=== PATIENT | female | born 1970 | race Caucasian/White ===

== ENCOUNTER → 2017-07-18 11:36 | Outpatient (CLI) | payer OTHER, SELFPAY ==
[2017-07-18 14:22] LABS: ALB/GLOB Ratio 1.2 RATIO (0.9-2.4); AST(SGOT) 15 U/L (15-37); Alanine Aminotransfer ALT/SGPT 15 U/L (13-56); Albumin, Serum 3.7 g/dL (3.2-5.0); Alkaline Phosphatase 52 U/L (45-117); Anion Gap 9 (5-15); BUN 13 mg/dL (7-18); BUN/Creat Ratio 16.2 RATIO (10-20); Calcium,Total 8.1 mg/dL (8.5-10.1); Chloride 106 mmol/L (98-107); EST Glomerular Filtration Rate 81 mL/min (>60); Est Glom Filt Rate - Afr Amer 98 mL/min (>60); Globulin 3.2 g/dL (2.2-4.2); Glucose 99 mg/dL (74-106); Potassium 3.8 mmol/L (3.5-5.1); Protein, Total 6.9 g/dL (6.4-8.2); Sodium Level 138 mmol/L (136-145); Thyroid Stim Hormone (TSH) 1.47 uIU/mL (0.358-3.74)
[2017-07-19 08:37] LABS: Vitamin D,25 Hydroxy 28.8 ng/mL (29.95-100.01)
== END ==
PROVIDERS: Family Provider Internal Medicine; PCP Internal Medicine; Visit Provider Internal Medicine Endocrinology, Diabetes & Metabolism
DX: E04.2 Nontoxic multinodular goiter (principal); E55.9 Vitamin D deficiency, unspecified
CPT/HCPCS: 36415; 80053; 82306; 84443

== ENCOUNTER 2019-03-11 08:40 | Day surgery (SDC) | payer OTHER, SELFPAY ==
--- NOTE | 2019-03-10 15:49 | HP.PCM_ITS ---
History and Physical Date of Admission: 03/11/19 Lore Infante 1970 ? ? REFERRING PHYSICIAN: Liss Barboza,* ? CHIEF COMPLAINT: Mammogram Abnormality ? HPI: The patient is a pleasant 48 year old female who presents with right breast abnormal radiographs. She denies palpable breast masses. She denies nipple discharge. She denies previous breast biopsies or breast surgeries. Denies breast pain. Mother and grandmother had breast cancer. Mother diagnosed at age 55 and tested negative for BRCA gene. No ovarian cancer in family known. ? Mammograms 02/11/19 There is a mass with a spiculated margin in the right breast upper inner aspect anterior depth. No other significant masses, calcifications, or other findings are seen in either breast. US right breast 02/26/19 There is 0.4 cm x 0.6 cm x 0.5 cm irregular mass in the right breast at 1 o'clock posterior depth 1 cm from the nipple. ?This irregular mass is hypoechoic with an abrupt boundary and posterior acoustic shadowing. ?This correlates with mammography findings. IMPRESSION: SUSPICIOUS FINDING - BIOPSY SHOULD BE CONSIDERED The 0.4 cm x 0.6 cm x 0.5 cm irregular mass in the right breast is suspicious of malignancy. ?An ultrasound guided biopsy is recommended. ? US needle core right breast biopsy 02/27/19 FINAL DIAGNOSIS Right breast, ultrasound guided mammotome biopsy - Invasive ductal carcinoma, provisional histologic grade I. Estrogen Receptor (ER) ? ?Positive (>95%) Progesterone Receptor (PgR) ? ?Positive (80%) HER2 (ERBB2) Interpretation: NEGATIVE for HER2 (ERBB2) Expression ? ? PAST MEDICAL HISTORY ? Bipolar disorder, unspecified (HCC) ? ? Manic-depressive ? Dysmenorrhea ? ? MIGRAINES ? ? MOSTLY MENSES AND STRESS RELATED. ? PAST SURGICAL HISTORY ? DELIVERY ONLY ? 12/12, 06/04/03 ? PAST SURGICAL HISTORY OF ? 2005 ? REPAIR OF AN UMBILICAL HERNIA ? ? Current Outpatient Medications ? rizatriptan (MAXALT) 10 mg tablet take 1 tablet by mouth as directed if needed ? Cholecalciferol, Vitamin D3, 5,000 unit cap Take by mouth. ? escitalopram (LEXAPRO) 10 mg ORAL tablet Take one(1) tablet daily. ? buPROPion XL (WELLBUTRIN XL) 150 mg ORAL 24 hr tablet not sure of dosage; Take one(1) tablet daily. ? lamotrigine (LAMICTAL) 25 mg ORAL tablet not sure of dosage ? NIASPAN 500 MG TAB TAKE ONE DAILY ? ? ALLERGIES: Patient has no known allergies. ? PERSONAL HISTORY: ? Smoking status: Never Smoker ? Smokeless tobacco: Never Used Substance Use Topics ? Alcohol use: Yes ? ? Comment: RARELY ? Drug use: No ? FAMILY HISTORY ? Breast Cancer Mother ? ? CURRENTLY BEING TREATED FOR HER2 ? Diabetes Mother ? ? BORDERLINE ? Hypertension Mother ? ? other (PULMINARY EMBOLISMS) Mother ? ? other (arrythemia) Mother ? ? Hypertension Father ? ? Breast Cancer Maternal Grandmother ? ? Breast Cancer Maternal Uncle ? ? Heart Other ? ? MATERNAL GREAT UNCLE/SMOKING RELATED. ? Heart Maternal Aunt ? ? QUADRUPLE BYPASS ? ? REVIEW OF SYSTEMS: General - denies fevers, denies anorexia, denies weight loss Cardiovascular - denies chest pain, denies history of PR Pulmonary - denies shortness of breath, denies coughing up blood Gastrointestinal - denies abdominal pain, denies hematemesis, denies blood in stools Neurological - denies seizures, denies chronic numbness/weakness of extremities, has occasional migraine headaches Genitourinary - denies burning with urination, denies blood in urine Hematological - denies spontaneous/prolonged bleeding Skin - denies nonhealing skin wounds Musculoskeletal - taking vit D supplements, denies chronic joint/back pain Endocrine - denies diabetes, no thyroid problems Psychological ? denies hallucinations, has mild bipolar - but no major mood swings at present Obstetrical - LMP 02/12/19, menarche onset at age 13, , first at age 30, breast feeding 15m, BCP init early 20s for 5 y, clomid 10d ? PHYSICAL EXAMINATION: General: The patient is 48 year old female, well nourished, well hydrated in no acute distress. The patient is oriented to time, place, and person. VITALS: Blood pressure 100/60, pulse 99, temperature 36.2 ?C (97.1 ?F), temperature source Temporal, resp. rate 14, weight 77.1 kg (170 lb), SpO2 99 %. Body mass index is 27.03 kg/m?. Head ? Normocephalic. EOM intact with sclera clear and no icterus noted. Mouth with mucus membranes moist. Neck - supple with no jugular venous distention noted. Trachea is midline. No ca rotid bruits noted. No thyroid enlargement or thyroid nodules detected. No masses noted. Chest/breast ? no asymmetry of breasts noted, no suspicious skin lesions noted - healed biopsy site minimal ecchymoses, no nipple discharge and both nipples everted, nodularly dense breast tissue palpated bilaterally, no suspicious lesions palpated Lungs ? clear to auscultation. Normal breath sounds. No rales/rhonchi/wheezing noted. No labored breathing noted, such as retractions. No cough heard. Heart ? normal S1 and S2 auscultated. No rubs/clicks/murmurs noted. Regular rate. Abdomen ? soft and benign. Normal bowel sounds. No abdominal bruits noted. No distention noted. No masses noted. Extremities ? no calf tenderness noted. No pitting edema noted. Skin ? normal skin integrity. Lymph ? no cervical adenopathy detected, no supraclavicular adenopathy detected, no axillary adenopathy detected Neurological ? cranial nerves II-XII intact. Normal motor strength in arms and legs. No localized numbness detected. Psych ? calm and appropriate RADIOLOGIC STUDIES: As Noted ? IMPRESSION: newly diagnosed right breast cancer ? PLAN: I have discussed the above with the patient, and her who is p resent with her. I have discussed initial options for surgical treatment of breast cancer - lumpectomy followed by radiation therapy versus mastectomy with or without reconstruction. I have explained the need for sentinel lymph node biopsy. I have explained the procedures to the patient. I have counseled the patient as to the risks of the procedure, including but not limited to: infection, bleeding, injury to any blood vessels/nerves, scar tissue, lymph leak, lymphedema, need for further surgery - missing the lesion/etc., wound infections, complications of anesthesia, etc. ? the patient understands. The patient wishes to proceed with lumpectomy I have answered all of the patient's questions and she has no further questions at this point.
--- NOTE | 2019-03-11 | AXNB_PTH ---
PATIENT: GENE VARGHESE [place] [facility] [place][id number] AGE/SX: 48/F ROOM: RE03/11/[address]: Dr. Rose Elizabeth MD : 1970 BED: DIS: 03/11/2019 SPEC #: [id number] RECD: 03/11/19 12:41 STATUS: CARYN REQ #: [id number] TAHMINA: 03/11/19 00:[address]: Rose Elizabeth DEPT: SURGICAL PATHOLOGY RECD BY: Bridgett Damian ENTERED: 03/11/19 13:07 SP TYPE: AX NODE BX OTHR DR: Dr. Liss Barboza DO Tissues: A - Axillary lymph node, NOS B - Right breast, NOS Procedures: Frozen Section (charge) Frozen Section Add'l ([facility]) Surgery Specimen Level IV Surgery Specimen Level V HEADER OPERATION: Breast lumpectomy, needle localization, sentinel node biopsy, frozen section PRE-OP DIAGNOSIS: Invasive ductal carcinoma right breast TISSUE SUBMITTED: A - Lymph node tissue sent for FS at 1234, B - Right breast lumpectomy, two short sutures - medial border, one short suture - superior border, one long suture - lateral border, two white sutures, C - Right breast tissue FROZEN SECTION DIAGNOSIS A. Right axillary sentinel lymph nodes, biopsy: Two out of two lymph nodes negative for carcinoma. AM:joseline 03/11/19 MICROSCOPIC DIAGNOSIS A. Right axillary sentinel lymph nodes, biopsy: Two out of two lymph nodes negative for metastatic carcinoma. See comment. B. Right breast, lumpectomy with needle localization: Invasive ductal carcinoma. See cancer summary below. See comment. C. Right breast tissue: A piece of benign breast tissue, negative for carcinoma. SJ:joseline 03/18/19 INVASIVE BREAST CANCER SUMMARY: Procedure: Excision with wire-guided localization Specimen: Type: Partial breast Laterality: Right Invasive Tumor: Site: Not specified Size: 0.4 x 0.3 cm (measured microscopically) Histologic type: Invasive ductal carcinoma, not otherwise specified Histologic grade ([place] grade): Glandular/tubular differentiation score: 1 Nuclear pleomorphism score: 1 Mitotic count score: 1 Overall grade: 1 (score of 3) Focality: Single focus of invasive tumor Ductal Carcinoma In Situ: Not identified Lobular Carcinoma In Situ: Not identified Tumor extension: Skin, nipple, skeletal muscle: Not applicable Invasive carcinoma margins: The invasive carcinoma is focally present at the superior margin of the specimen. In situ carcinoma margins: not applicable. Regional Lymph Nodes: Number of sentinel lymph nodes examined: 2 Total number of lymph nodes examined: 2 No evidence of macrometastases, micrometastases or isolated tumor cells Lymph-vascular invasion: Not identified Dermal lymph-vascular invasion: Not applicable Treatment Effect: No known presurgical therapy. Distant metastasis: No applicable Additional Pathologic Findings: Fibrocystic changes and intraductal hyperplasia without atypia. - Changes consistent with previous site. Ancillary Studies: Previously performed on same tumor ([facility] [id number]) ER: Positive (>95%, moderate intensity) MO: Positive (80%, weak intensity) Her2: Negative (1+) Microcalcifications: Not identified Clinical History: Please refer to previous specimen ([facility] [id number]), right breast, ultrasound-guided mammotome biopsy with diagnosis of invasive ductal carcinoma, provisional histologic grade I. Pathologic Stage: pT1a pN0(sn) Mx The above summary is in compliance with [employer] [place] [employer] (CAP) Cancer Protocols Checklist and [place] Joint Committee on Cancer (AJCC), Staging Manual, 8th Ed. COMMENT A. The lymph nodes are negative for metastatic carcinoma on multiple H & E levels and immunohisto-chemical stains for cytokeratins (RF20-9). B. Immunohistochemistry (RF20-9) supports the above diagnosis. Case has been reviewed in consultation with Dr. Sultana who concurs with the above diagnosis. IDC:AM MICROSCOPIC DESCRIPTION Slides are reviewed. GROSS DESCRIPTION A - Received fresh for frozen section consultation labeled with the patient's name is a specimen designated lymph node tissue. The specimen consists of an irregular fragment of jacobs-yellow fibrofatty tissue measuring 3 x 2 x 1 cm. Dissection reveals two lymph nodes ranging in size from 1 to 1.3 cm. The nodules of the lymph nodes are submitted in their entirety in two blocks for frozen section consultation as follows: 1 - lymph node, 2 - one lymph node, bisected. / AM: 03/12/19 B - Received fresh for OR consultation labeled with the patient's name is a specimen designated right breast lumpectomy. The specimen consists of an irregular fragment of oriented yellow fatty tissue measuring 6 x 5.5 x 2 cm and weighing 32.2 gm. The specimen is differentially inked as follows: The specimen is inked as follows: anterior - yellow, posterior - black, superior - blue, inferior - green, medial - red and lateral - orange. Serial sections reveal a blood-filled biopsy cavity measuring 5 mm. This biopsy cavity is located 4 mm from its closest (inferior) margin of excision. The remainder of the breast parenchyma is jacobs-yellow and contains focal white fibrous streaks. No distinct mass lesion is identified. The results of the gross evaluation are conveyed to the surgeon intraoperatively. The entire specimen is submitted as follows: 1 & 2 - perpendicular margins, 3-22 - rest of the specimen. The specimen is submitted after additional fixation. / AM: 03/12/19 C - Received in fixative is one container labeled with the patient's name and designated right breast tissue. The specimen consists of a single irregular fragment of yellow fatty tissue measuring 3.6 x 3 x 1.2 cm. No designation is provided. The specimen is inked and serially sectioned to reveal homogenous yellow cut surfaces without areas of cyst formation, necrosis or hemorrhage. The specimen is totally submitted in three cassettes. / AM: 03/12/19 TC:0 CPT: 59427 x2, 09818, 18128, 67234, 38174
--- NOTE | 2019-03-11 | IMM_PTH ---
PATIENT: GENE VARGHESE LOC: [facility] – [place] U#:[id number] AGE/SX: 48/F ROOM: RE03/11/[address]: Dr. Rose Elizabeth MD : 1970 BED: DIS: 03/11/2019 SPEC #: [id number] RECD: 03/15/19 10:57 STATUS: CARYN REQ #: [id number] TAHMINA: 03/11/19 00:[address]: Rose Elizabeth DEPT: IMMUNOHISTOCHEMISTRY RECD BY: Bridgett Damian ENTERED: 03/15/19 10:59 SP TYPE: IMMUNO OTHR DR: Dr. Liss Barboza DO Tissues: A - Axillary lymph node, NOS B - Right breast, NOS Procedures: Calponin-1(initial) CALPONIN-1 (add) CK7 (add) Pankeratin (initial) Pankeratin (add) P40 (add) PHYSICIAN & INSTITUTION [place] [id number] SPECIMEN INFORMATION: Tissue Source: A - Right axillary sentinel lymph nodes, biopsy, B - Right breast lumpectomy Clinical Info: Invasive ductal carcinoma right breast Specimen Number: [id number] A1, A2, B14 & B15 CPT code: 60368 x2, 68129 x6 METHODOLOGY: Deparaffinized sections of prefer/formalin-fixed tissue or PAP/DQ stained slides are incubated with monoclonal/polyclonal antibodies/oligonucleotide probes. Localization is made via biotin free immunoperoxidase method. Appropriate controls are performed and reacted as expected. Results on target cell population are indicated in the following table: RESULTS: ANTIBODY / CLONE RESULT Block A1 AE1-3 (AE1/AE3/PCK26) negative CK7 (OV-TL12/30) negative Block A2 AE1-3 (AE1/AE3/PCK26) negative CK7 (OV-TL12/30) negative Block B14 P40 (BC28) negative Calponin-1 (KH391I) negative Block B15 P40 (BC28) negative Calponin-1 (MX459R) negative These tests were developed and their performance characteristics determined by [facility]. They may not have been cleared or approved by the U.S. Food and Drug Administration. The FDA has determined that such clearance or approval is not necessary. The above immunohistochemical/dualISH markers are ordered and reviewed by the Pathologist. INTERPRETATION: A. Right axillary sentinel lymph nodes, biopsy: Two out of two lymph nodes, negative for metastatic carcinoma. B. Right breast lumpectomy: Invasive ductal carcinoma. SJ:joseline 03/18/19
--- NOTE | 2019-03-11 09:02 | BI_ITS ---
SURGICAL BREAST SPECIMEN RADIOGRAPH CLINICAL: Document presence of localization wire in biopsy specimen. FINDINGS: Specimen shows presence of localization wire. The wire appears intact. There is no evident mass or suspicious calcifications within either specimen. A biopsy clip is not identified within the specimen. Pathology is pending and an addendum to the biopsy report will be performed after the final pathologic diagnosis is rendered. Electronically Signed: Alo Benson MD at 7:13 EST , Service support , BI/Breast Biopsy Specimen
[2019-03-11 09:10] VITALS: BP 109/73; PULSE 70; RESP 16; TEMP 36.6; O2SAT 97; BMI 26.6
[2019-03-11 09:14] LABS: Internal QC Validated? YES +Cl - CLEAR BKGD; Pregnancy, Urine Negative Negative
--- NOTE | 2019-03-11 09:30 | NM_ITS ---
Procedure: Right breast, periareolar, injection of nuclear medicine for lymph node evaluation. INDICATIONS: Right breast malignancy. TECHNIQUE: 1.1 mCi total activity of filtered sulfur colloid was fractionated into 4 equal volumes. Each volume was then injected in a intradermal and subdermal location at the periareolar right breast 12:00, 3:00, 6:00 and 9:00 locations. NM/Lymph Node Injection Only IMPRESSION: Successful nuclear medicine injection of the periareolar right breast. The patient tolerated the procedure well without evident immediate post procedure complication. Electronically Signed: Alo Benson MD at 10:51 EST , Service support ,
[2019-03-11] MEDS: Cefazolin 2 GM in 0.9% Normal Saline 100 ML IV (12:02)
[2019-03-11] MEDS: Isosulfan Blue 1% 5 ML Vial (12:11)
[2019-03-11] MEDS: 0.9% Normal Saline (Pres. free 10 ML Vial (12:11)
--- NOTE | 2019-03-11 12:55 | RAD_ITS ---
STUDY: X-RAY CHEST REASON FOR EXAM: Female, 48 years old. LOOKING FOR RIGHT BREAST CLIP. AP PCXR 55 and quot; SUPINE IN SURGERY. TECHNIQUE: Single AP portable view of the chest. COMPARISON: None. FINDINGS: There is a 3 mm long linear metallic just to the right of the spine which may represent a breast biopsy clip. However, this seems somewhat medial and may represent something else. Surgical clips and gas is seen in the right axilla consistent with axillary lymph node dissection. The lungs are clear and expanded. There is no demonstrated pleural abnormality. Normal size heart. Normal mediastinum and corey. Normal visualized pulmonary arteries. Normal visualized aortic arch and descending thoracic aorta. Normal visualized thoracic spine. Normal visualized ribs, clavicles, and shoulders. There is no demonstrated abnormality of the visualized soft tissue structures of the upper abdomen. RAD/Chest 1 View (Portable) IMPRESSION: Questionable breast biopsy clip medially. Electronically Signed: Anibal Ozuna MD at 14:25 EST Tel , Service support ,
[2019-03-11] MEDS: Bupiv/Epi 0.25% 30 ML Vial (13:54)
[2019-03-11 14:13] VITALS: BP 109/73; BP 119/80; PULSE 24; RESP 132; TEMP 36.8; O2SAT 95
[2019-03-11 14:30] VITALS: BP 109/73; BP 116/81; PULSE 85; RESP 16; O2SAT 92
[2019-03-11 14:45] VITALS: BP 109/73; BP 110/80; PULSE 68; RESP 16; O2SAT 93
[2019-03-11] MEDS: Lactated Ringers 1,000 ML 75 ML IV (14:55)
[2019-03-11 14:58] VITALS: BP 109/73; BP 113/80; PULSE 70; RESP 16; TEMP 36.9; O2SAT 96
--- NOTE | 2019-03-11 15:00 | PCM.DC.BS ---
Discharge Diet: No Restrictions Discharge Activity: Return to Normal Activity, May not drive while taking narcotic pain medications. Lifting Restrictions: no lifting greater than 5 pounds with right arm Call your doctor if your incision/area has: Continuous Slow Oozing, Foul Smelling Discharge Call your doctor if you observe: Fever of 101 or Higher Additional Dressing/Incision Instructions:: Leave dressings in place. May get wet in shower. Do not soak - no tub baths/swimming. Wear supportive bra during the day, apply ice to area as tolerated for comfort Additional Instructions: Follow up with Dr. Elizabeth, either Monday the third or Monday the 6th, whichever is convenient, please call for time and date , thank you Allergies/Adverse Reactions: Allergies No Known Allergies Allergy (Verified 03/11/19 09:05) Medications to take at Discharge Bupropion HCl [Bupropion HCl Sr] 150 mg PO DAILY 03/08/19 Escitalopram Oxalate [Lexapro] 10 mg PO DAILY 03/08/19 Lamotrigine [Lamictal Xr] 100 mg PO DAILY 03/08/19 Niacin [Niacin ER] 500 mg PO DAILY 03/08/19 Hydrocodone Bitart/Apap 5-325 [[place] 5MG-325MG] 1 tab PO Q8H PRN PRN 5 Days #15 tab 03/11/19 The following prescriptions were given: Hydrocodone Bitart/Apap 5-325 [[place] 5MG-325MG] 1 tab PO Q8H PRN PRN 5 Days #15 tab PRN Reason: Pain Transmission Status: Received by [address] Primary Care Physician: Liss Barboza DO [Primary Care Provider] - Please Follow Up With: Rose Elizabeth MD - When: to be seen on Monday or Monday, whichever is convenient, please call us
--- NOTE | 2019-03-11 15:48 | OP.PCM_ITS ---
Report of Operation Date of Procedure: 03/11/19 Pre-Operative Diagnosis: right breast cancer Post-Operative Diagnosis: right breast cancer - upper inner quadrant, two lymph nodes negative Surgery/Procedure Performed:: right breast lumpectomy via wire localization, right axillary sentinel lymph node biopsy via blue and radioactive dye Description of Surgical Findings:: right breast cancer - upper inner quadrant, two lymph nodes negative, marker clip capsule identified (also cavity noted) but marker clip dropped out and not in specimen fire department marine engineer: Desirae Gay Type of Anesthesia:: General Anesthesiologist: Talha Cobian Specimen's removed: right breast tissue, right breast lymph node tissue Estimated Blood Loss (mL): < 10 ml Fluids Replaced: see anesthesia note Description of Procedure: After informed consent was given, the patient was brought into the Breast Stereotactic Radiology suite. Appropriate time out protocol was followed. She was then placed in the prone position on the [place] stereotactic table. The patient?s right breast was placed in the opening at the head of the table. A sales contract administrator compression mammogram was then obtained in the medial view. The marker clip that was previously placed was identified. Stereo pictures of the lesion were then taken for XYZ coordinates. The Kopans needle was then positioned where it would be entering into the patient?s breast. The skin at this site was then cleansed with a surgical skin preparation. The skin and subcutaneous tissues at this site were then infiltrated with 1% xylocaine. The Kopans needle was then positioned into the patient?s breast at the proper coordinates of depth. A sales contract administrator film was obtained which revealed the wire in proper position. The patient was then placed in the supine position and the wire was taped into place. A unilateral mammogram in the CC and MLO view were then taken for use in the OR. The patient tolerated this portion of the procedure well and was brought to the AC awaiting surgery in the OR The patient was then brought to the Operating Room and placed on the operating table in the supine position. Appropriate time out protocol was followed. She was then placed under general anesthesia. 2 cc of diluted 50:50 lymphozurin blue dye was then injected into the periareolar area and around the biopsy cavity with a 25 g needle. Gentle massage was then done for a few minutes. The patient's right chest and neck area was then prepped with a sterile surgical skin preparation and appropriate sterile surgical drapes were placed. The Neoprobe was brought into the operative field. 10 second count over the tumor site was 454. 10 second count over the abdomen was 0. A skin incision was made in the inferior portion of the hair bearing area of the right axilla. It was carried through to the subcutaneous tissues using electrocautery. Any hemorrhage was controlled with electrocautery. A Weitlaner retractor was used for increased operative exposure. The blue lymphatic vessels were then followed by blunt dissection until blue colored lymph nodes were identified. These were from the surrounding tissue by blunt dissection and the vascular pedicles ligated with vicryl suture and ligaclips. 10 second count over the ly mph tissue was 45. The lymph nodes were then forwarded to pathology for frozen section. Pathology revealed that two lymph nodes were negative for metastatic disease. 10 second count in the axillary cavity after the lymph hay tissue was removed was 4. Hemostasis was controlled with electrocautery. Star was applied into the axillary cavity. The skin edges were reapproximated with 3-0 vicryl suture in a horizontal mattress fashion and then further closed with running 4-0 monocryl in a subcuticular fashion. Cavilon and steristrips were then placed to reinforce the skin closure and proper sterile dressings were applied. The right breast lumpectomy was then done next. A wire had already been placed in the stereotactic biopsy room in the radiology department as described above. The skin and subcutaneous tissues at the site of the breast lesion was then infiltrated with 1% xylocaine with epinephrine. A transverse skin incision was then made with a 15 blade scalpel in the upper inner aspect of the patient's right breast. The incision was carried down through to the subcutaneous tissues. Hemostasis was controlled with electrocautery. The breast tissue surrounding the wire was then carefully palpated out and from the surrounding tissues using electrocautery. The marker clip was noted to be medial to the breast lesion from the previous US guided needle core biopsy. The marker clip capsule was identified, it had from the breast tissue. There was a palpable mass that was lateral to the marker clip capsule, it was dissected such that there was at least a centimeter margin around the lesion. The breast tissue, once from the breast, was then forwarded to the radiology department. A specimen mammogram revealed that the lesion was within the specimen but the marker clip was not present. A CXR obtained in the OR revealed that the marker clip was in the most medial aspect of the lumpectomy cavity. It had probably dropped there - since it was not in the location as noted in the previous mammograms. Attempt to retrieve the marker clip by excising more breast tissue was unsuccessful. Therefore retrieving the clip was aborted. Pathology review revealed that there was a mass present and a clot filled biopsy cavity, with the closest margin was inferior with a measurement of 4mm. The wound cavity was carefully examined. No further suspicious tissue was palpated or visualized. Hemostasis was carefully controlled with electrocautery. The subdermal tissues were then approximated with vicryl suture. The incision was then reapproximated close using running monocryl suture. Cavilon and steristrips were then placed to reinforce the skin closure. A sterile dressing was then applied. The patient was then brought to the Recovery Room in stable condition. - Complications none noted - Admit VTE Documentation VTE Present on Admission: Yes VTE Mechan Device Prophylaxis: SCD's
[2019-03-11 15:58] VITALS: BP 105/65; BP 109/73; PULSE 62; RESP 16; TEMP 36.8; O2SAT 99
== END 2019-03-11 16:11 | disposition home or self-care (01) ==
LOC: SDC 08:44 → AC 08:46
PROVIDERS: Anesthesiology; Family Provider Internal Medicine; PCP Internal Medicine; Referring Provider Surgery; Visit Provider Surgery
PROC: 0HBV0ZZ Excision of Bilateral Breast, Open Approach (ICD-10-PCS; CPT 19302; principal; 2019-03-11 10:45)
DX: C50.211 Malignant neoplasm of upper-inner quadrant of right female breast (principal); Z17.0 Estrogen receptor positive status [ER+]; F31.9 Bipolar disorder, unspecified; Z79.899 Other long term (current) drug therapy; Z80.3 Family history of malignant neoplasm of breast
CPT/HCPCS: 19301; 38525; 38900; 19281; 38792; 71045; 76098; 81025; 88305; 88307; 88331; 88332; 88341; 88342; A9541; J7120; J2405; J3490; Q9968

== ENCOUNTER 2019-03-20 07:14 | Day surgery (SDC) | payer OTHER, SELFPAY ==
--- NOTE | 2019-03-19 19:45 | HP.PCM_ITS ---
History and Physical Date of Admission: 03/20/19 Lore Infante 1970 ? ? REFERRING PHYSICIAN: Liss Barboza,* ? CHIEF COMPLAINT: Mammogram Abnormality ? HPI: The patient is a pleasant 48 year old female who presents right breast cancer. She is s/p right breast lumpectomy on 03/11/19. At time of surgery, pathology revealed closest margin was inferior with clear margins. However, final pathology reveals that superior margin is grossly positive. She therefore presents for reexcision. Also marker clip was retained, will attempt retrieval of this. ? Procedure: Excision with wire-guided localization Specimen: Type: Partial breast Laterality: Right Invasive Tumor: Site: Not specified Size: 0.4 x 0.3 cm (measured microscopically) Histologic type: Invasive ductal carcinoma, not otherwise specified Histologic grade (Amber grade): Glandular/tubular differentiation score: 1 Nuclear pleomorphism score: 1 Mitotic count score: 1 Overall grade: 1 (score of 3) Focality: Single focus of invasive tumor Ductal Carcinoma In Situ: Not identified Lobular Carcinoma In Situ: Not identified Tumor extension: Skin, nipple, skeletal muscle: Not applicable Invasive carcinoma margins: The invasive carcinoma is focally present at the superior margin of the specimen. In situ carcinoma margins: not applicable. Regional Lymph Nodes: Number of sentinel lymph nodes examined: 2 Total number of lymph nodes examined: 2 No evidence of macrometastases, micrometastases or isolated tumor cells Lymph-vascular invasion: Not identified Dermal lymph-vascular invasion: Not applicable Treatment Effect: No known presurgical therapy. Distant metastasis: No applicable Additional Pathologic Findings: Fibrocystic changes and intraductal hyperplasia without atypia. - Changes consistent with previous site. Ancillary Studies: Previously performed on same tumor ([facility] [id number]- [id number]) ER: Positive (>95%, moderate intensity) CA: Positive (80%, weak intensity) Her2: Negative (1+) Microcalcifications: Not identified Clinical History: Please refer to previous specimen ([facility] [id number]), right breast, ultrasound-guided mammotome biopsy with diagnosis of invasive ductal carcinoma, provisional histologic grade I. Pathologic Stage: pT1a pN0(sn) Mx ? ? PAST MEDICAL HISTORY ? Bipolar disorder, unspecified (HCC) ? ? Manic-depressive ? Dysmenorrhea ? ? MIGRAINES ? ? MOSTLY MENSES AND STRESS RELATED. right breast cancer stage I ? PAST SURGICAL HISTORY ? DELIVERY ONLY ? 12/12, 06/04/03 ? PAST SURGICAL HISTORY OF ? 2005 ? REPAIR OF AN UMBILICAL HERNIA right breast lumpectomy/sentinel lymph node biopsy 03/11/19 ? ? Current Outpatient Medications ? rizatriptan (MAXALT) 10 mg tablet take 1 tablet by mouth as directed if needed ? Cholecalciferol, Vitamin D3, 5,000 unit cap Take by mouth. ? escitalopram (LEXAPRO) 10 mg ORAL tablet Take one(1) tablet daily. ? buPROPion XL (WELLBUTRIN XL) 150 mg ORAL 24 hr tablet not sure of dosage; Take one(1) tablet daily. ? lamotrigine (LAMICTAL) 25 mg ORAL tablet not sure of dosage ? NIASPAN 500 MG TAB TAKE ONE DAILY ? ? ALLERGIES: Patient has no known allergies. ? PERSONAL HISTORY: ? Smoking status: Never Smoker ? Smokeless tobacco: Never Used Substance Use Topics ? Alcohol use: Yes ? ? Comment: RARELY ? Drug use: No ? FAMILY HISTORY ? Breast Cancer Mother ? ? CURRENTLY BEING TREATED FOR HER2 ? Diabetes Mother ? ? BORDERLINE ? Hypertension Mother ? ? other (PULMINARY EMBOLISMS) Mother ? ? other (arrythemia) Mother ? ? Hypertension Father ? ? Breast Cancer Maternal Grandmother ? ? Breast Cancer Maternal Uncle ? ? Heart Other ? ? MATERNAL GREAT UNCLE/SMOKING RELATED. ? Heart Maternal Aunt ? ? QUADRUPLE BYPASS ? ? REVIEW OF SYSTEMS: General - denies fevers, denies anorexia, denies weight loss Cardiovascular - denies chest pain, denies history of [place] Pulmonary - denies shortness of breath, denies coughing up blood Gastrointestinal - denies abdominal pain, denies hematemesis, denies blood in stools Neurological - denies seizures, denies chronic numbness/weakness of extremities, has occasional migraine headaches Genitourinary - denies burning with urination, denies blood in urine Hematological - denies spontaneous/prolonged bleeding Skin - denies nonhealing skin wounds Musculoskeletal - taking vit D supplements, denies chronic joint/back pain Endocrine - denies diabetes, no thyroid problems Psychological ? denies hallucinations, has mild bipolar - but no major mood swings at present Obstetrical - LMP 02/12/19, menarche onset at age 13, , first at age 30, breast feeding 15m, BCP init early 20s for 5 y, clomid 10d ? PHYSICAL EXAMINATION: General: The patient is 48 year old female, well nourished, well hydrated in no acute distress. The patient is oriented to time, place, and person. VITALS: Blood pressure 100/60, pulse 99, temperature 36.2 ?C (97.1 ?F), temperature source Temporal, resp. rate 14, weight 77.1 kg (170 lb), SpO2 99 %. Body mass index is 27.03 kg/m?. Head ? Normocephalic. EOM intact with sclera clear and no icterus noted. Mouth with mucus membranes moist. Neck - supple with no jugular venous distention noted. Trachea is midline. No carotid bruits noted. No thyroid enlargement or thyroid nodules detected. No masses noted. Chest/breast ? no asymmetry of breasts noted, no suspicious skin lesions noted - healed transverse incision medial aspect of right breast, no nipple discharge and both nipples everted, nodularly dense breast tissue palpated bilaterally, no suspicious lesions palpated Lungs ? clear to auscultation. Normal breath sounds. No rales/rhonchi/wheezing noted. No labored breathing noted, such as retractions. No cough heard. Heart ? normal S1 and S2 auscultated. No rubs/clicks/murmurs noted. Regular rate. Abdomen ? soft and benign. Normal bowel sounds. No abdominal bruits noted. No distention noted. No masses noted. Extremities ? no calf tenderness noted. No pitting edema noted. Skin ? normal skin integrity. Lymph ? no cervical adenopathy detected, no supraclavicular adenopathy detected, healed axillary incisional site - no axillary adenopathy detected Neurological ? cranial nerves II-XII intact. Normal motor strength in arms and legs. No localized numbness detected. Psych ? calm and appropriate RADIOLOGIC STUDIES: As Noted ? IMPRESSION: right breast cancer stage I - margins positive ? PLAN: I have discussed the above with the patient, and her who is present with her. I have recommended reexcision to clear margins. Will also attempt to retrieve marker clip. I have explained the procedure to the patient. I have counseled the patient as to the risks of the procedure, including but not limited to: infection, bleeding, injury to any blood vessels/nerves, scar tissue, lymph leak, lymphedema, need for further surgery - missing the lesion/etc., wound infections, complications of anesthesia, etc. ? the patient understands. The patient wishes to proceed with lumpectomy I have answered all of the patient's questions and she has no further questions at this point.
--- NOTE | 2019-03-20 07:34 | BI_ITS ---
SURGICAL BREAST SPECIMEN RADIOGRAPH CLINICAL: Document presence of tissue clip marker in biopsy specimen. FINDINGS: Specimen shows presence of tissue clip marker. Electronically Signed: Virgil Maddox, at 10:52 EST , Service support , BI/Breast Biopsy Specimen
[2019-03-20 07:44] LABS: Internal QC Validated? YES +Cl - CLEAR BKGD; Pregnancy, Urine Negative Negative
[2019-03-20 07:47] VITALS: BP 111/74; PULSE 71; RESP 16; TEMP 37; O2SAT 99; BMI 26.6
--- NOTE | 2019-03-20 08:55 | BRBX_PTH ---
PATIENT: GENE VARGHESE [place] [facility] [id number] AGE/SX: 48/F ROOM: RE03/20/[address]: Dr. Rose Elizabeth MD : 1970 BED: DIS: 03/20/2019 SPEC #: [id number] RECD: 03/20/19 10:19 STATUS: CARYN AMANDA #: [id number] TAHMINA: 03/20/19 08:[address]: Rose Elizabeth DEPT: SURGICAL PATHOLOGY RECD BY: Lamonte Larios ENTERED: 03/20/19 10:50 SP TYPE: BREAST BX OTHR DR: Dr. Liss Barboza DO Tissues: A - Right breast, NOS B - Right breast, NOS Procedures: Surgery Specimen Level IV HEADER OPERATION: Breast lumpectomy PRE-OP DIAGNOSIS: Right breast cancer, stage 1 TISSUE SUBMITTED: A. Right breast tissue, B. Additional right breast issue MICROSCOPIC DIAGNOSIS A. Right breast tissue: A piece of benign breast tissue with changes consistent with previous biopsy site. B. Additional right breast tissue: Changes consistent with previous biopsy site. Intraductal hyperplasia without atypia. Negative for malignancy. See comment. CAT:joseline 03/22/19 COMMENT B. Please make reference to previous specimen, [id number], right breast, lumpectomy with diagnosis of invasive ductal carcinoma. The tumor is present at the superior margin of the lumpectomy specimen.. Additional tissue submitted, [id number] is negative for carcinoma. The overall superior margin is 1 cm away from the tumor. The cancer summary is already provided in the previous specimen ([id number]). MICROSCOPIC DESCRIPTION Slides are reviewed. GROSS DESCRIPTION A - Received in fixative is one container labeled with the patient's name and designated right breast tissue. The specimen consists of an irregular fragment of yellow-white fibrofatty tissue containing wire and measuring 3.5 x 2.5 x 1.3 cm and weighing 5 gm. No sutures are present in the specimen. The specimen is inked. No distinct mass lesion is identified. The specimen is totally submitted in four cassettes. B - Received in fixative is one container labeled with the patient's name and designated additional right breast, suture carr tumor site (superior margin). The specimen consists of a pancake-shaped fragment of yellow fatty tissue measuring 7 x 5 x 1 cm. A suture is present along one surface. This surface is inked in blue ink. The opposite surface is inked in black ink. Serial sections reveals a jacobs-white nodule measuring 5 mm. The remainder of the cut surfaces are yellow and fatty in appearance. No?other nodules are identified. The nodule is submitted in its entirety in cassette 1. Additional public service representative sections are submitted in cassettes 2-6. / AM:joseline 03/21/19 TC:5 CPT: 84841 x2
[2019-03-20] MEDS: Cefazolin 2 GM in 0.9% Normal Saline 100 ML IV (09:34)
--- NOTE | 2019-03-20 10:54 | PCM.OPRPT ---
Report of Operation Date of Procedure: 03/20/19 Pre-Operative Diagnosis: right breast cancer - margins positive Post-Operative Diagnosis: same Surgery/Procedure Performed:: right breast biopsy via wire localization - excision of superior margins of breast biopsy cavity, wire localization for excision of marker clip Description of Surgical Findings:: right breast tissue - superior margin excised Anesthesiologist: Mikey Banks Specimen's removed: right breast tissue, superior margin with suture at tumor side Estimated Blood Loss (mL): < 10 ml Fluids Replaced: 800 ml RL Description of Procedure: After informed consent was given, the patient was brought into the Breast Stereotactic Radiology suite. Appropriate time out protocol was followed. She was then placed in the prone position on the [place] stereotactic table. The patient?s right breast was placed in the opening at the head of the table. A marriage counselor compression mammogram was then obtained in the lateral view. The marker clip that was previously placed was identified. Stereo pictures of the lesion were then taken for XYZ coordinates. The Kopans needle was then positioned where it would be entering into the patient?s breast. The skin at this site was then cleansed with a surgical skin preparation. The skin and subcutaneous tissues at this site were then infiltrated with 1% xylocaine. The Kopans needle was then positioned into the patient?s breast at the proper coordinates of depth. A marriage counselor film was obtained which revealed the wire in proper position. The patient was then placed in the supine position and the wire was taped into place. A unilateral mammogram in the CC and MLO view were then taken for use in the OR. The patient tolerated this portion of the procedure well and was brought to the AC awaiting surgery in the OR. The patient was then brought to the Operating Room. Appropriate time out protocol was again followed. She was placed on the operating table in the supine position. A wire had already been placed in the stereotactic biopsy room in the radiology department as described above. The right breast with the wire in placed was then prepped with a sterile surgical skin preparation and sterile surgical drapes were placed. The skin and subcutaneous tissues at the site of the breast lesion was then infiltrated with 1% xylocaine with epinephrine. At the site of the previous surgical site, a skin incision was then made with a 15 blade scalpel and carried down through to the subcutaneous tissues. Hemostasis was controlled with electrocautery. The wire was then palpated out and brought into the wound from outside. The breast tissue surrounding the wire was then carefully palpated out and from the surrounding tissues using electrocautery. The breast tissue, once from the breast, was then forwarded to the radiology department, where a specimen mammogram revealed that the marker clip was within the specimen. The breast lumpectomy was carefully examined. The superior aspect of the cavity was then excised from the surrounding breast tissue. The breast tissue was then marked with suture at the previous tumor site. It was then forwarded to pathology for analysis. No palpable or visible suspicious lesions were noted. Hemostasis was carefully controlled with electrocautery. The parenchymal breast tissues were then approximated with vicryl suture. The subdermal tissues were also reapproximated with vicryl suture. The incision was then reapproximated close using running monocryl suture. Cavilon and steristrips were then placed to reinforce the skin closure. A sterile dressing was then applied. The patient was then brought to the Recovery Room in stable condition. - Complications none noted - Admit VTE Documentation VTE Present on Admission: Yes VTE Mechan Device Prophylaxis: SCD's
[2019-03-20 11:01] VITALS: BP 104/68; BP 111/74; PULSE 74; RESP 16; TEMP 37.1; O2SAT 98
[2019-03-20 11:06] VITALS: BP 111/74; BP 96/60; PULSE 61; RESP 15; O2SAT 98
--- NOTE | 2019-03-20 11:10 | DCINST_ITS ---
Discharge Diet: No Restrictions Discharge Activity: Return to Normal Activity Additional Activity Instructions:: as per previous Allergies/Adverse Reactions: Allergies No Known Allergies Allergy (Verified 03/18/19 13:32) Medications to take at Discharge Bupropion HCl [Bupropion HCl Sr] 150 mg PO DAILY 03/08/19 Escitalopram Oxalate [Lexapro] 10 mg PO DAILY 03/08/19 Lamotrigine [Lamictal Xr] 100 mg PO DAILY 03/08/19 Niacin [Niacin ER] 500 mg PO DAILY 03/08/19 Cephalexin [Keflex] 500 mg PO Q12 5 Days #10 cap 03/20/19 The following prescriptions were given: Cephalexin [Keflex] 500 mg PO Q12 5 Days #10 cap Transmission Status: Pending to [address] Primary Care Physician: Liss Barboza DO [Primary Care Provider] - Please Follow Up With: Rose Elizabeth MD - call When: to be seen next week, please call for date and time, thank you
[2019-03-20 11:11] VITALS: BP 111/74; BP 98/65; PULSE 60; RESP 16; O2SAT 98
[2019-03-20 11:16] VITALS: BP 111/74; BP 98/59; PULSE 66; RESP 16; TEMP 36.7; O2SAT 98
[2019-03-20 11:51] VITALS: BP 111/74
== END 2019-03-20 11:55 | disposition home or self-care (01) ==
LOC: SDC 07:15 → AC 07:16
PROVIDERS: Anesthesiology; Family Provider Internal Medicine; PCP Internal Medicine; Referring Provider Surgery; Visit Provider Surgery
PROC: (CPT 19301; principal; 2019-03-20 08:40)
DX: C50.911 Malignant neoplasm of unspecified site of right female breast (principal); F31.9 Bipolar disorder, unspecified; Z79.899 Other long term (current) drug therapy
CPT/HCPCS: 19301; 19281; 76098; 81025; 88305; J7050; J7120; J3490; Q9968

== ENCOUNTER → 2019-06-25 08:42 | Outpatient (CLI) | payer OTHER, SELFPAY ==
--- NOTE | 2019-06-25 08:45 | RAD_ITS ---
STUDY: X-RAY - LUMBAR SPINE REASON FOR EXAM: Female, 49 years old. Sciatica TECHNIQUE: 5 view(s) of the lumbar spine were obtained including oblique views. COMPARISON: None FINDINGS: Normal lumbar lordosis. There is no substantial scoliosis. There is a normal alignment of the vertebrae. Normal vertebral bodies and endplates. Normal disc space heights. Phleboliths are seen within the pelvis. RAD/L/S Spine Min 4 Views IMPRESSION: Normal x-ray examination of the lumbar spine. Electronically Signed: Virgil Maddox, at 14:41 EDT , Service support ,
== END ==
PROVIDERS: PCP Internal Medicine; Referring Provider Family Medicine; Visit Provider Family Medicine
DX: M54.30 Sciatica, unspecified side (principal)
CPT/HCPCS: 72110

== ENCOUNTER 2020-01-09 08:54 | Day surgery (SDC) | payer OTHER, SELFPAY ==
--- NOTE | 2020-01-03 08:39 | EKG12_ITS ---
Test Reason : PREOP Blood Pressure : / mmHG Vent. Rate : 076 BPM Atrial Rate : 076 BPM P-R Int : 152 ms QRS Dur : 074 ms QT Int : 400 ms P-R-T Axes : 065 079 071 degrees QTc Int : 450 ms Normal sinus rhythm Nonspecific ST and T wave abnormality Abnormal ECG Confirmed by VAISHALI WITT, MICHAEL ([id number]), sound editor NOLAN HAN ([id number]) on 01/06/2020 12:51:52 PM Referred By: Karime Chavez Confirmed By:MICHAEL TOM MD
--- NOTE | 2020-01-03 09:14 | RAD_ITS ---
STUDY: X-RAY CHEST REASON FOR EXAM: Female, 49 years old. preop/hx of right breast radiation. TECHNIQUE: Frontal and lateral views of the chest. COMPARISON: 03/11/2019. FINDINGS: Hyperexpansion of the lungs. Increased density in the medial lower right lung. This could be atelectasis or infiltrate especially if the patient has had right breast radiation. However it is noted the patient also has pectus excavatum which can cause artifactual increased density in the medial lower right lung. Correlate clinically and consider CT scan. Left lung is clear. Probable normal heart size, displaced to the left because of the pectus. Bones and soft tissues otherwise negative. RAD/Chest PA and Lateral IMPRESSION: Hyperexpansion of the lungs. Cannot exclude atelectasis or infiltrate or radiation changes in the medial right lung which could be artifactually increased by pectus excavatum. If clinically indicated recommend CT scan. Electronically Signed: Alexander Rodriguez MD at 23:53 EDT , Service support ,
[2020-01-03 10:11] LABS: Hematocrit 38.3 % (37-47); Mean Corp Hgb Conc 31.3 g/dL (32-36); Mean Corpuscular Hgb 29.1 pg (27.0-32.0); Mean Platelet Vol. 9.1 fl (6.2-12.0); Platelet Count 408 K/mm3 (150-450); RBC Distribution Width CV 12.5 % (11.6-14.6); RBC Distribution Width SD 42.5 fl (35.1-43.9); Red Blood Count 4.12 M/mm3 (4.2-5.4); White Blood Count 8.6 K/mm3 (4.4-11.0)
[2020-01-09 09:18] VITALS: BP 111/71; PULSE 68; RESP 16; TEMP 36.4; O2SAT 94; BMI 24.3
[2020-01-09] MEDS: Celecoxib 200 MG Capsule 400 MG PO (09:25)
[2020-01-09] MEDS: Acetaminophen 500 MG Tablet 1000 MG PO (09:25)
[2020-01-09 09:29] LABS: Internal QC Validated? YES +Cl - CLEAR BKGD; Pregnancy, Urine Negative Negative
[2020-01-09] MEDS: Lactated Ringers 1,000 ML 100 ML IV (09:32)
--- NOTE | 2020-01-09 10:30 | OV_PTH ---
PATIENT: GENE VARGHESE [place] [facility] [place][id number] AGE/SX: 49/F ROOM: RE01/09/[address]: Dr. Karime Chavez MD : [id number] BED: DIS: 01/09/2020 SPEC #: [id number] RECD: 01/09/20 13:06 STATUS: CARYN AMANDA #: [id number] TAHMINA: 01/09/20 10:[address]: Karime Chavez DEPT: SURGICAL PATHOLOGY RECD BY: Atiya Kenny ENTERED: 01/09/20 13:33 SP TYPE: OVARY OTHR DR: Dr. Danelle Addison MD Tissues: Ovary, NOS Procedures: Surgery Specimen Level IV HEADER OPERATION: Laparoscopic bilateral salpingo-oophorectomy PRE-OP DIAGNOSIS: ER/OK positive breast cancer TISSUE SUBMITTED: Bilateral fallopian tubes and ovaries, right tube burned in center MICROSCOPIC DIAGNOSIS Bilateral fallopian tubes and ovaries, salpingo-oophorectomy: Bilateral fallopian tubes - no pathologic diagnosis. Right ovary - focal calcifications. Left ovary - no pathologic diagnosis. CAT:joseline 01/10/20 MICROSCOPIC DESCRIPTION Slides are reviewed. GROSS DESCRIPTION Received in fixative is one container labeled with the patient's name and designated bilateral fallopian tubes and ovaries, right tube burned in center. The specimen consists of bilateral fallopian tubes and ovaries. Right tube is identified by a burn. The right fallopian tube measures 5 cm in length and 0.5 cm in diameter. The fimbrial end is identified. Sections reveal unremarkable cut surfaces. No tubo-ovarian adhesions are noted. The right ovary measures 3 x 2.5 x 1.5 cm. Sections reveal unremarkable cut surfaces. The left fallopian tube is similar appearance to right and measures 4.5 cm in length and 0.5 cm in diameter. The fimbrial end is identified. Sections reveal unremarkable cut surfaces. The left ovary measures 3 x 2.5 x 1.5 cm. Sections reveal unremarkable cut surfaces. Emergency Dispatch Operator sections are submitted in 4 cassettes as follows: 1 & 2 - right fallopian tube & ovary, 3 & 4- left fallopian tube & ovary. / Emelia 01/09/20 TC:5 CPT: 13295 x2
--- NOTE | 2020-01-09 12:00 | PCM.HP.BLA ---
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 HPI: The patient is a 49 year old female presenting for pre-operative visit. She is scheduled for laparoscopic bilateral salpingegooophorectomy, for h/o ductal carcinoma carcinoma on 01/09/20. Procedure discussed along with risks, benefits and complications. Other alternatives discussed for management. Consent form signed? Yes. ? ? PAST MEDICAL HISTORY PAST MEDICAL HISTORY Diagnosis Date ? Bipolar disorder, unspecified (HCC) ? ? Manic-depressive ? Carcinoma of right breast upper inner quadrant (HCC) 02/2019 ? Dysmenorrhea ? ? MIGRAINES ? ? MOSTLY MENSES AND STRESS RELATED. ? ? PAST SURGICAL HISTORY PAST SURGICAL HISTORY Procedure Laterality Date ? BREAST LUMPECTOMY HX Right 03/11/2019 ? BX/REMV,LYMPH NODE,DEEP AXILL Right 03/11/2019 ? DELIVERY ONLY ? 12/12, 06/04/03 ? EXCIS BREAST LES W XRAY MARKER Right 03/20/2019 ? PAST SURGICAL HISTORY OF ? 2006 ? REPAIR OF AN UMBILICAL HERNIA ? ? ? CURRENT MEDICATIONS Current Outpatient Medications Medication Sig Dispense Refill ? tamoxifen (NOLVADEX) 20 mg tablet Take 1 tablet (20 mg) by mouth once daily. 90 tablet 3 ? lamoTRIgine (LAMICTAL) 100 mg tablet Take 100 mg by mouth once daily. ? ? ? niacin (NIACIN) 500 mg tablet Take 500 mg by mouth once daily. ? ? ? rizatriptan (MAXALT) 10 mg tablet take 1 tablet by mouth as directed if needed ? 0 ? Cholecalciferol, Vitamin D3, 5,000 unit cap Take 5,000 Units by mouth once daily. ? escitalopram (LEXAPRO) 10 mg ORAL tablet Take one(1) tablet daily. ? 0 ? buPROPion XL (WELLBUTRIN XL) 150 mg 24 hr tablet Take 150 mg by mouth once daily. DO NOT CRUSH. SWALLOW WHOLE ? ? 0 ? No current facility-administered medications for this visit. ? ? ALLERGIES: Patient has no known allergies. ? PERSONAL HISTORY: SOCIAL HISTORY Social History ? Tobacco Use ? Smoking status: Never Smoker ? Smokeless tobacco: Never Used Substance Use Topics ? Alcohol use: Yes ? ? Comment: RARELY ? Drug use: No ? FAMILY HISTORY: FAMILY HISTORY FAMILY HISTORY Problem Relation Age of Onset ? Breast Cancer Mother 55 ? CURRENTLY BEING TREATED FOR HER2 ? Diabetes Mother ? ? BORDERLINE ? Hypertension Mother ? ? other (PULMINARY EMBOLISMS) Mother ? ? other (arrythemia) Mother ? ? Hypertension Father ? ? Breast Cancer Maternal Grandmother 55 ? Breast Cancer Maternal Uncle 55 ? Heart Other ? ? MATERNAL GREAT UNCLE/SMOKING RELATED. ? Heart Maternal Aunt ? ? QUADRUPLE BYPASS ? ? REVIEW OF SYMPTOMS: GENERAL: denies fevers or chills ENDOCRINOLOGY: has not been on steroids Cardiology : denies palpitations or chest pain Respiratory: denies SOB or cough Hematology: denies history of prolonged bleeding or easy bruising or VTE Allergy: Denies history of personal or family history of allergy to anesthesia ? PHYSICAL EXAMINATION: ? VITALS: Last menstrual period 11/24/2019. ? GENERAL: The patient is well nourished, well hydrated in no acute distress. , The patient is oriented to time, place, and person. NECK: Supple. No lynphadenopathy, normal thyroid, no thyromegaly. LUNGS: Clear to auscultation bilaterally. no wheezes, rhonchi or rales HEART: Regular rate and rhythm, Normal heart sounds and No murmurs or gallops ? ? IMPRESSION: Estrogen/progesterone receptor positive invasive ductal carcinoma of the breast, desires surgical menopause ? PLAN: The risks/benefits/alternatives and personal involved for the planned laparoscopic bilateral salpingooophorectomy were reviewed with the patient. Her questions were answered to her satisfaction and she desires to proceed. Consent was signed. I reviewed with her postop instructions and expectations. ? ? I have reviewed and updated past medical and surgical history, medications and allergies Karime Chavez M.D. Office Visit on 12/27/2019 Revision History
[2020-01-09] MEDS: Bupivacaine Mpf 0.5% 30 ML VIAL (12:20)
--- NOTE | 2020-01-09 12:36 | PCM.OPRPT ---
Report of Operation Date of Procedure: 01/09/20 Pre-Operative Diagnosis: estrogen and progesterone receptor positive breast cancer Post-Operative Diagnosis: same Surgery/Procedure Performed:: Laparoscopic bilateral salpingoophorectomy Description of Surgical Findings:: normal uterus, tubes and ovaries supervisor paste plant: Rhonda Uribe supervisor paste plant: Yumiko Kinney [id number] Type of Anesthesia:: General Anesthesiologist: Brendan Alva Special Medications: none Specimen's removed: bilateral tubes and ovaries Drains: none Estimated Blood Loss (mL): 10 Fluids Replaced: 500 cc LR Description of Procedure: The patient was taken to the operating room where she was prepped and draped in the dorsolithotomy position. A weighted speculum was placed in the vagina and the anterior lip of the cervix was grasped with a tenaculum. The Isa uterine manipulator was placed and the remainder of the instruments were removed from the vagina. Attention was turned to the abdomen. All port sites were infiltrated with 0.5% Marcaine before skin incisions were made. A 5 mm infraumbilical incision was made through her prior existing scar. The anterior abdominal wall was tented up with 2 towel clamps while a 5 mm blade less trocar and sleeve were directly inserted. Intraperitoneal placement was confirmed with the laparoscope. The pneumoperitoneum was created and the underlying abdominal contents were intact. The patient was placed in Trendelenburg. 5mm right and left lower quadrant ports were placed under direct visualization lateral to the inferior epigastric vessels. The bowel was swept away and the above findings were noted. The right infundibulopelvic ligament was clamped, sealed and transected with the LigaSure device. The antimesenteric portions of the tube were clamped, sealed and transected. The utero-ovarian ligaments were clamped sealed and transected with the LigaSure device . The same procedure was performed on the contralateral side. The specimens were placed in an bag and removed through the umbilical incision. The pedicles were again examined and found to be hemostatic. The helical port fascia was closed with 0 Vicryl [id number] suture. The lateral ports were removed under direct visualization and no active bleeding was noted. The pneumoperitoneum was released. The skin incisions were closed with Monocryl suture in a subcuticular fashion and skin glue Dr. Clinton. The vaginal instruments were removed and the vaginal sweep was completed by me. The procedure was performed by me with assistance other than as dictated above. All sponge and needle counts were correct and the patient was taken to the recovery room in stable condition. Grafts/Implants Used: none - Complications none - Admit VTE Documentation VTE Present on Admission: No VTE Mechan Device Prophylaxis: SCD's VTE Pharm Prophylaxis ordered?: No
--- NOTE | 2020-01-09 12:41 | DCINST_ITS ---
Discharge Diet: No Restrictions - Increase fluid intake for the next 48 hours. Discharge Activity: Return to Normal Activity, May Drive - when you are no longer taking pain/narcotic meds., May Shower, May Take a Tub Bath - in 7 days Return to work on:: 01/13/20 May shower in (days): 1 May resume sexual activity in: No Restrictions Additional Activity Instructions:: Ambulate often the next week after surgery. Nothing in the vagina for 5 days. Call your doctor if your incision/area has: Continuous Slow Oozing, Sudden Increased Bleeding, Increased Pain/ Swelling, Increased Redness, Foul Smelling Discharge Call your doctor if you observe: Fever of 101 or Higher Cleanse incision/area with: Soap & Water, - - YOur incisions have skin glue, it can get wet. Allow it to fall off Allergies/Adverse Reactions: Allergies No Known Allergies Allergy (Verified 01/09/20 09:01) Medications to take at Discharge Bupropion HCl [Bupropion HCl Sr] 150 mg PO DAILY 03/08/19 Escitalopram Oxalate [Lexapro] 10 mg PO DAILY 03/08/19 Lamotrigine [Lamictal Xr] 100 mg PO DAILY 03/08/19 Niacin [Niacin ER] 500 mg PO DAILY 03/08/19 Primary Care Physician: Danelle Addison MD [Primary Care Provider] - Test Results: Test results from this visit will be discussed in further detail at your follow- up appointment, if applicable. Please Follow Up With: Karime Chavez MD - [phone] When: 1-2 weeks or as needed
[2020-01-09 12:58] VITALS: BP 111/71; BP 115/74; PULSE 75; RESP 17; TEMP 36.4; O2SAT 100
[2020-01-09 13:10] VITALS: BP 108/70; BP 111/71; PULSE 61; RESP 16; O2SAT 100
[2020-01-09 13:15] VITALS: BP 109/67; BP 111/71; PULSE 60; RESP 16; O2SAT 96
[2020-01-09 13:30] VITALS: BP 101/68; BP 111/71; PULSE 52; RESP 16; TEMP 36.4; O2SAT 96
[2020-01-09] MEDS: oxyCODONE 5 MG Tablet PO (14:26)
[2020-01-09 15:29] VITALS: BP 111/71; BP 136/81; PULSE 53; RESP 16; TEMP 36.6; O2SAT 94
== END 2020-01-09 15:30 | disposition home or self-care (01) ==
LOC: SDC 08:54 → AC 08:55
PROVIDERS: Anesthesiology; PCP Internal Medicine; Referring Provider Obstetrics & Gynecology; Visit Provider Obstetrics & Gynecology
PROC: (CPT 58661; principal; 2020-01-09 10:15)
DX: C50.211 Malignant neoplasm of upper-inner quadrant of right female breast (principal); Z20.828 Contact with and (suspected) exposure to other viral communicable diseases; F31.9 Bipolar disorder, unspecified; Z79.899 Other long term (current) drug therapy; Z17.0 Estrogen receptor positive status [ER+]; R94.31 Abnormal electrocardiogram [ECG] [EKG]
CPT/HCPCS: 00940; 58661; 36415; 71046; 81025; 85027; 87635; 88305; 93005; C9803; J7120; J2405; U0003

== ENCOUNTER → 2021-07-22 | Outpatient (CLI) | payer OTHER, SELFPAY ==
--- NOTE | 2021-07-22 14:01 | RAD_ITS ---
STUDY: X-RAY - LEFT ANKLE REASON FOR EXAM: Female, 51 years old. left ankle pain TECHNIQUE: 3 view(s) of the ankle. COMPARISON: None. FINDINGS: Normal visualized distal tibia and fibula. Normal medial and lateral malleoli. Normal tibiotalar articulation and ankle mortise. Normal visualized talus and calcaneus. The visualized subtalar, talonavicular, calcaneocuboid and tarsal articulations are normal. The soft tissue structures are unremarkable. RAD/Ankle min 3 Views IMPRESSION: Normal x-ray examination of the ankle. Electronically Signed: Solomon Vega MD (Brooks) at 18:42 EDT ,
== END | disposition home or self-care (01) ==
LOC: RAD.FUTURE 12:44 → MTRAD 14:01
PROVIDERS: PCP Internal Medicine; Referring Provider Family Medicine; Visit Provider Family Medicine
DX: M25.572 Pain in left ankle and joints of left foot (principal)
CPT/HCPCS: 73610

== ENCOUNTER 2021-12-07 09:16 | Emergency (ER) | payer OTHER, SELFPAY ==
[2021-12-07 09:18] VITALS: BP 112/81; PULSE 61; RESP 18; TEMP 35.5; O2SAT 98; BMI 27.9
--- NOTE | 2021-12-07 09:30 | EKG12_ITS ---
Test Reason : SYNCOPE Blood Pressure : / mmHG Vent. Rate : 055 BPM Atrial Rate : 055 BPM P-R Int : 176 ms QRS Dur : 092 ms QT Int : 458 ms P-R-T Axes : 047 039 071 degrees QTc Int : 438 ms Sinus bradycardia Otherwise normal ECG Confirmed by DEBI WITT, KIMBERLY ([id number]), publications editor NOLAN HAN ([id number]) on 12/09/2021 9:47:53 AM Referred By: ESTEBAN Confirmed By:KIMBERLY CARRERA MD
--- NOTE | 2021-12-07 09:31 | EX.ED.DYSGE1 ---
HPI History of Present Illness Chief Complaint: Syncope Informant: patient Onset/Context/Timing Onset: Today Context: Sudden Onset Current Severity: Gone Maximum Severity: Mild Narrative Narrative: 51-year-old female no significant past medical history. No recent surgeries or hospitalization. States she took her niacin today it made her feel flush. She felt lightheaded and flushed at work and passed out. She woke up on the floor. Was out briefly for seconds. Denies any injuries. Prior to passing out she had no headache, chest pain, shortness of breath, palpitations or abdominal pain. She has had no recent illness such as nausea, vomiting, diarrhea or fever. No melena. No dysuria. She has been feeling fine. Currently states she feels well. Prior similar symptoms: No Recent Illness/Hospitalization: No PFSH PFSH Home Medications bupropion HCl (smoking deter) 150 mg tablet,12 hr sustained-release(smoking deterrent) 150 mg PO DAILY 03/08/19 [History Last Taken Unknown] escitalopram oxalate 10 mg tablet 10 mg PO DAILY 03/08/19 [History Last Taken Unknown] lamotrigine 100 mg tablet,extended release 24 hr 100 mg PO DAILY 03/08/19 [History Last Taken Unknown] niacin 500 mg tablet,extended release 24 hr 500 mg PO DAILY 03/08/19 [History Last Taken Unknown] anastrozole 1 mg tablet mg 12/07/21 [History Last Taken Unknown] Allergy/AdvReac Type Severity Reaction Status Date / Time No Known Allergies Allergy Verified 12/07/21 09:21 Social History Smoking Status: Never smoker ROS ROS ED ROS Narrative Denies any recent illness. Review of Systems ROS Unobtainable: Denies due to encephalopathy Constitutional Constitutional ED: Denies chills or fever(s) Eyes Eyes: Denies blurry vision ENT ENT ED: Denies ear pain Cardiovascular Cardiovascular: Denies chest pain Respiratory/Chest Respiratory/Chest: Denies cough Gastrointestinal Gastrointestinal: Denies abdominal pain, diarrhea, melena, nausea or vomiting Genitourinary Genitourinary ED: Denies dysuria or hematuria Musculoskeletal Musculoskeletal: Denies arthralgias Integumentary Denies abscess Neurologic Neurologic: Denies headache(s) Psychiatric Psychiatric: Denies anxiety Endocrine Endocrinology: Denies cold intolerance Hematologic/Lymphatic Hematologic/Lymphatic: Reports none Allergic/Immunologic Allergic/Immunologic ED: Denies mouth swelling or tongue swelling EXAM Physical Exam Narrative Exam Narrative: Middle-aged female no acute distress vital signs stable afebrile. Pulse ox 98% on room air no signs hypoxia. H EENT exam unremarkable atraumatic. Pupils round reactive light. No signs of trauma. C-spine nontender. Back and spine nontender. No signs of trauma. Trachea midline. Lungs clear to auscultation bilaterally. Heart regular rate and rhythm rate about 60 no murmur. Chest wall nontender. Abdomen soft nontender. Moving all 4 extremities. Calves are nontender without edema or cords. 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 Dorsi plantarflexion intact. Normal range of motion. Neurologic exam normal. GCS of 15. NIH of 0. Normal exam. Const Vital Signs: 12/07/21 09:18 12/07/21 09:23 12/07/21 09:33 Temperature 95.9 F L Temperature Source Temporal Pulse Rate 61 Pulse Rate [Lying] Pulse Rate [Sitting (for 1 minute prior to obtaining)] Pulse Rate [Standing (for 1 minute prior to obtaining)] Respiratory Rate 18 Respiratory Effort Normal Non-Labored Respiratory Pattern Normal Blood Pressure 112/81 H Blood Pressure [Lying] Blood Pressure [Sitting (for 1 minute prior to obtaining)] Blood Pressure [Standing (for 1 minute prior to obtaining)] Blood Pressure Mean 91 Blood Pressure Mean [Lying] Blood Pressure Mean [Sitting (for 1 minute prior to obtaining)] Blood Pressure Mean [Standing (for 1 minute prior to obtaining)] Pulse Ox 98 Oxygen Delivery Method Room Air Room Air 12/07/21 09:41 Temperature Temperature Source Pulse Rate Pulse Rate [Lying] 56 L Pulse Rate [Sitting (for 1 minute prior to obtaining)] 59 L Pulse Rate [Standing (for 1 minute prior to obtaining)] 85 Respiratory Rate Respiratory Effort Respiratory Pattern Blood Pressure Blood Pressure [Lying] 99/63 Blood Pressure [Sitting (for 1 minute prior to obtaining)] 103/71 Blood Pressure [Standing (for 1 minute prior to obtaining)] 104/71 Blood Pressure Mean Blood Pressure Mean [Lying] 75 Blood Pressure Mean [Sitting (for 1 minute prior to obtaining)] 81 Blood Pressure Mean [Standing (for 1 minute prior to obtaining)] 82 Pulse Ox Oxygen Delivery Method Positive well nourished and well developed; Negative for obese, cachectic, contractures or unkempt General Appearance ED: well developed and NAD; Negative for unkempt, cachectic, contractures, cyanotic, diaphoretic or pallor Nutritional Appearance: Negative for cachectic or obese HEENT Reports moist mucous membranes; Denies dry mucous membranes or other Negative for trauma, tenderness or other Mouth ED: No dry mucous membranes Mouth: No dry mucous membranes Eyes PERRL and EOMs intact bilaterally General Eye ED: Negative for pale conjunctiva or scleral icterus Neck no lymphadenopathy, supple and no JVD General: Negative for tenderness Lymph Lymphatic: Negative for other Chest Wall inspection of chest normal and palpation of chest normal Chest: Negative for other Resp normal respiratory effort and clear to auscultation bilaterally Effort and Inspection: Negative for retractions Auscultation: Negative for rales, rhonchi or wheezes Cardio regular rate, regular rhythm, S1 normal heart sound, S2 normal heart sound and no murmurs Rhythm: Negative for abnormal rhythm GI normal to inspection, nondistended, normoactive bowel sounds, non-tender, non-distended and no masses Inspection: Negative for abdominal distention Auscultation: normoactive bowel sounds Palpation: soft; Negative for tender, guarding, splenomegaly, mass or rebound tenderness present Back/Spine no CVA tenderness General Back: Negative for CVA tenderness Cervical Spine: Negative for cervical spine tenderness Thoracic Spine / Upper Back: Negative for thoracic spinal tenderness Lumbar Spine / Lower Back: Negative for lumbar spinal tenderness Extremity normal to inspection General Extremety ED: Negative for edema or tenderness General Extremity: Negative for edema Neuro oriented x3, CN's II-XII intact bilaterally and no sensory deficits noted Sensorium / Orientation: alert; Negative for orientation impaired, lethargic or stuporous Sensory Exam: No sensory level loss detected Motor Exam: strength 5/5 throughout Psych mental status grossly normal Appearance: Negative for unkempt Attitude: No agitated Mood & Affect: Negative for depressed, anxious or tearful Skin no rashes or lesions noted, no wounds and skin turgor normal General Skin Exam: elasticity normal; Negative for jaundice or pallor Lesions: No lesion noted Rashes: No rashes noted Trauma: Negative for abrasion Wounds: Negative for wounds noted MDM MDM MDM Narrative Medical decision making narrative: Well-appearing 51-year-old female normal exam. Had a brief syncopal event. It may be a reaction to the niacin she took. Screening labs EKG and orthostatic vital signs will be obtained. Repeat exam patient doing well at 10:36 AM. I suspect her syncopal event was caused by the niacin. She will be discharged to home. Lab Data Attestation: I reviewed the patient's lab results. Lab results narrative: CBC normal white count 5.1. H&H 15 and 47. Electrolytes gap of 8 normal BUN and creatinine. Normal glucose 115. Troponin 6. Orthostatic vital signs were unremarkable. Labs: Laboratory Results - last 24 hr 12/07/21 12/07/21 09:35 09:35 WBC 5.1 RBC 4.93 Hgb 15.2 H Hct 44.7 MCV 90.7 MCH 30.8 MCHC 34.0 RDW Std Deviation 39.8 RDW Coeff of Júnior 12.0 Plt Count 235 MPV 9.5 Immature Gran % (Auto) 0.400 Neut % (Auto) 62.7 Lymph % (Auto) 31.3 Allen % (Auto) 2.4 Eos % (Auto) 2.4 Baso % (Auto) 0.8 Absolute Neuts (auto) 3.2 Absolute Lymphs (auto) 1.59 Nucleated RBC % 0 Sodium 144 Potassium 3.5 Chloride 110 H Carbon Dioxide 26.0 Anion Gap 8 BUN 14 Creatinine 0.96 Estim Creat Clear Calc 67.42 Est GFR (MDRD) Af Amer 78 Est GFR (MDRD) Non-Af 65 BUN/Creatinine Ratio 14.6 Glucose 115 H Calcium 8.9 Troponin I High Sens 6 Discharge Plan Triage Chief Complaint: Syncope ED Provider: Fernie Godoy Dx/Rx/DC Orders Clinical Impression: Syncope, Adverse reaction to niacin Instructions: Causes of Syncope Prescriptions: No Action niacin 500 MG tablet extended release 24 hr 500 mg PO DAILY escitalopram oxalate 10 MG tablet 10 mg PO DAILY lamotrigine 100 MG tablet extended release 24hr 100 mg PO DAILY bupropion HCl (smoking deter) 150 MG tablet extended release 12 hr 150 mg PO DAILY anastrozole 1 mg tablet Label Comments: take 1 tablet by mouth once daily Primary Care Provider: Bernadette Santiago Referrals: Bernadette Santiago MD [Primary Care Provider] - As Needed Activity Restrictions/Additional Instructions: Most likely the reaction to niacin caused you to pass out. Otherwise your exam labs and EKG were all unremarkable. Disposition Disposition: Home, Self Care
[2021-12-07 09:41] VITALS: BP 103/71; BP 104/71; BP 99/63; PULSE 56; PULSE 59; PULSE 85
[2021-12-07 09:52] LABS: Absolute Lymphocyte Count 1.59 X10^3/uL (0.83-4.51); Absolute Neutrophil Count 3.2 X10^3/uL (2.0-7.7); Basophil# 0.04 X10^3/uL; Basophil% 0.8 % (0-1); Eosinophil# 0.12 X10^3/uL; Eosinophils% 2.4 % (0-5); Hematocrit 44.7 % (37-47); Hemoglobin 15.2 g/dL (12.0-15.0); Lymphocyte # 1.59 X10^3/ul (0.83-4.51); Lymphocyte % 31.3 % (19-41); Mean Corpuscular Hgb 30.8 pg (27.0-32.0); Mean Corpuscular Volume 90.7 fL (81-99); Mean Platelet Vol. 9.5 fl (6.2-12.0); Monocyte# 0.12 X10^3/uL; Monocyte% 2.4 % (0-10); NRBC Flagged by Analyzer 0 % (0-5); Neutrophil # 3.19 X10^3/uL (2.7-7.7); Neutrophil % 62.7 % (47-70); Platelet Count 235 K/mm3 (150-450); RBC Distribution Width SD 39.8 fl (35.1-43.9); Red Blood Count 4.93 M/mm3 (4.2-5.4); White Blood Count 5.1 K/mm3 (4.4-11.0)
[2021-12-07 10:01] LABS: Anion Gap 8 (5-15); BUN 14 mg/dL (7-18); BUN/Creat Ratio 14.6 RATIO (10-20); Calcium,Total 8.9 mg/dL (8.5-10.1); Chloride 110 mmol/L (98-107); Creatinine, Serum 0.96 mg/dL (0.55-1.02); EST Glomerular Filtration Rate 65 mL/min (>60); Est Glom Filt Rate - Afr Amer 78 mL/min (>60); Estimated Creatinine Clearance 67.42 ml/min; Glucose 115 mg/dL (74-106); Potassium 3.5 mmol/L (3.5-5.1); Sodium Level 144 mmol/L (136-145); Troponin-I HS 6 pg/mL (3.0-54.0)
[2021-12-07 10:50] VITALS: BP 103/78; PULSE 69; RESP 15; O2SAT 99
== END 2021-12-07 10:50 | disposition home or self-care (01) ==
PROVIDERS: Emergency Provider Emergency Medicine; PCP Internal Medicine; Visit Provider Emergency Medicine
DX: R55 Syncope and collapse (principal); T46.7X5A Adverse effect of peripheral vasodilators, initial encounter; Z79.899 Other long term (current) drug therapy
CPT/HCPCS: 80048; 84484; 85025; 93005; 99285; A4216

== ENCOUNTER → 2021-12-27 | Outpatient (CLI) | payer OTHER, SELFPAY ==
[2021-12-27 16:48] LABS: Lipase 231 U/L (73-393)
== END | disposition home or self-care (01) ==
LOC: LABSPEC 16:08
PROVIDERS: PCP Internal Medicine; Visit Provider Nurse Practitioner Family
DX: R10.13 Epigastric pain (principal)
CPT/HCPCS: 83690